=== PATIENT | male | born 1955 | race Caucasian/White ===

== ENCOUNTER 2021-05-25 09:42 | Emergency (ER) | payer OTHER, SELFPAY ==
--- NOTE | 2021-05-25 09:52 | ED_ITS ---
HPI - General Adult General Chief complaint: ETOH/Substance Use Stated complaint: DRUG USE, NOT COOPERATIVE AT THIS TIME Time Seen by Provider: 05/25/21 09:52 Source: patient and EMS Mode of arrival: EMS Limitations: no limitations History of Present Illness HPI narrative: used heroin at home - roommate upset and didn't want him to overdose there, called PD complaint: used heroin Onset (ago): minute(s) Severity: mild Relieving factors: none Exacerbating factors: none Associated symptoms: denies other symptoms Treatments prior to arrival: none Related Data Allergies Allergy/AdvReac Type Severity Reaction Status Date / Time No Known Allergies Allergy Unverified 05/25/21 10:01 [No Known Allergies*] shell fish Allergy Unknown Unknown Uncoded 05/25/21 10:01 Review of Systems Review of Systems: Constitutional : No Fever, No Chills ENT/Mouth : No sore throat, No Rhinorrhea Eyes: No Eye Pain, No Swelling, No Redness Cardiovascular : No Chest Pain, No SOB Respiratory : No Cough, No Sputum, No Wheezing Gastrointestinal : No Nausea, No Vomiting, No Diarrhea Genitourinary : No Dysuria, No Urinary Frequency, No Hematuria, Musculoskeletal : No joint pain, No Myalgias, No Joint Swelling Skin : No Skin Lesions, No rash Neuro : No Weakness, No Numbness, No Dizziness, No Headache Psych : No Anxiety/Panic, No Depression, no SI/HI Heme/Lymph: No Bruising, No Bleeding,No Lymphadenopathy Endocrine : No Polyuria, No Polydipsia All other systems reviewed and are negative [facility] Past Medical History Attestation statement: The following information was validated with the patient. Medical History Heroin abuse Substance abuse Social History Social History (Updated 05/25/21 @ 10:01 by Brittney García DO) Patient Tobacco Use Status: Tobacco use Unknown Substance Use Type: Heroin Advance Directives: Yes Advance Directives Information Provided: Yes Advance Directives on File: No Physical Exam Vital Signs: Vital Signs: Last Vital Signs Pulse 95 05/25/21 09:56 Resp 16 05/25/21 09:56 BP 149/80 H 05/25/21 09:56 Pulse Ox 93 05/25/21 09:56 Body Mass Index 25.8 Appearance: Alert. Oriented X3. No acute distress. Eyes: pinpoint pupils ENT: Pharynx normal. Neck: Normal inspection. Neck supple. CVS: Normal heart rate and rhythm. Pulses normal. Respiratory: No respiratory distress. Breath sounds normal. Abdomen: Soft and non-tender. Skin: Skin warm and dry. Normal skin color. Normal skin turgor. Extremities: No lower extremity edema. No calf ttp Neuro: Oriented X 3. No motor deficit. No sensory deficit. Course Course Course Narrative: obs x 1 hour no need for narcan asking to leave Medical Decision Making [facility] Narrative Medical decision making narrative: 65 yo male with opiate abuse on methadone snorted some heroin today - no SI, roommate upset and didn't want him to overdose here so he called PD. patient carries narcan at home. will offer recovery coaches. Discharge Plan Discharge Clinical Impression: Opiate abuse, continuous Patient Disposition: Home, Self-Care Instructions: Opioid Use Disorder (ED) Additional Instructions: return to ED for any worsening symptoms or concerns please carry your narcan with you please stop using drugs
[2021-05-25 09:56] VITALS: BP 149/80; BP 180/90; PULSE 112; PULSE 95; RESP 16; O2SAT 93; O2SAT 96; BMI 25.8
== END 2021-05-25 11:09 | disposition home or self-care (01) ==
PROVIDERS: Emergency Provider Emergency Medicine
DX: F11.20 Opioid dependence, uncomplicated (principal); F19.10 Other psychoactive substance abuse, uncomplicated
CPT/HCPCS: 99283

== ENCOUNTER 2021-06-10 09:50 | Outpatient (REF) | payer MEDICARE, SELFPAY ==
--- NOTE | ~2021-06-10 | XR_ITS ---
EXAMINATION: XR LUMBAR SPINE XR HIP, LEFT CLINICAL INFORMATION: Lower back and left hip pain. COMPARISON: CT abdomen/pelvis dated 09/01/2019. TECHNIQUE: AP, lateral, and coned-down views of the lumbar spine. AP and frog-leg lateral views of the left hip. FINDINGS: Lumbar Spine: Normal vertebral body alignment. The lumbar lordosis is maintained. Minimal vertebral body height loss at the anterior aspect of L1, new when compared to the CT dated 09/01/2019. 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 Multilevel loss of intervertebral disc height with endplate osteophytes, most prominent at L5-S1, slightly progressed. Multilevel bilateral facet arthropathy. Left Hip: No acute fracture or dislocation. Kpmzqgoe-gf-xhlzgq joint space narrowing with superior subchondral sclerosis and subchondral cystic change. Marginal osteophytes. No abnormal soft tissue calcification. XR/XR hip LT min 2V IMPRESSION: LUMBAR SPINE: Minimal superior endplate compression fracture of L1, new when compared to the CT from 2019. Multilevel degenerative disc disease and bilateral facet arthropathy, progressed. LEFT HIP: [id number] left hip osteoarthritis, progressed.
--- NOTE | ~2021-06-10 | XR_ITS ---
EXAMINATION: XR LUMBAR SPINE XR HIP, LEFT CLINICAL INFORMATION: Lower back and left hip pain. COMPARISON: CT abdomen/pelvis dated 09/01/2019. TECHNIQUE: AP, lateral, and coned-down views of the lumbar spine. AP and frog-leg lateral views of the left hip. FINDINGS: Lumbar Spine: Normal vertebral body alignment. The lumbar lordosis is maintained. Minimal vertebral body height loss at the anterior aspect of L1, new when compared to the CT dated 09/01/2019. 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 Multilevel loss of intervertebral disc height with endplate osteophytes, most prominent at L5-S1, slightly progressed. Multilevel bilateral facet arthropathy. Left Hip: No acute fracture or dislocation. Zresrjgw-oc-fcfuly joint space narrowing with superior subchondral sclerosis and subchondral cystic change. Marginal osteophytes. No abnormal soft tissue calcification. XR/XR lumbar spine 2-3V IMPRESSION: LUMBAR SPINE: Minimal superior endplate compression fracture of L1, new when compared to the CT from 2019. Multilevel degenerative disc disease and bilateral facet arthropathy, progressed. LEFT HIP: [id number] left hip osteoarthritis, progressed.
== END 2021-06-10 09:51 | disposition home or self-care (01) ==
LOC: HO.XRAY 09:50
PROVIDERS: Absent Provider Internal Medicine; PCP Internal Medicine; Visit Provider Emergency Medicine
DX: S39.92XA Unspecified injury of lower back, initial encounter (principal)
CPT/HCPCS: 72100; 73502